=== PATIENT | female | born 1945 | race Caucasian/White ===

== ENCOUNTER 2016-11-21 12:00 | Outpatient (CLI) ==
[2015-11-18 10:18] VITALS: BMI 36.6
[2016-11-21 12:29] LABS: PROTHROMBIN TIME 28.7 SEC (9.3-11.0)
== END 2016-11-21 12:01 | disposition home or self-care (01) ==
LOC: LAB 12:00
PROVIDERS: ATTEND Internal Medicine
DX: Z51.81 Encounter for therapeutic drug level monitoring (principal); Z79.01 Long term (current) use of anticoagulants
CPT/HCPCS: 36415; 85610

== ENCOUNTER 2016-12-22 09:45 | Outpatient (CLI) ==
[2015-11-18 10:18] VITALS: BMI 36.6
[2016-12-22 10:06] LABS: PROTHROMBIN TIME 21.4 SEC (9.3-11.0)
== END 2016-12-22 09:46 | disposition home or self-care (01) ==
LOC: LAB 09:45
PROVIDERS: ATTEND Internal Medicine
DX: Z51.81 Encounter for therapeutic drug level monitoring (principal); Z79.01 Long term (current) use of anticoagulants
CPT/HCPCS: 36415; 85610

== ENCOUNTER 2017-01-19 09:04 | Outpatient (CLI) | payer OTHER ==
[2015-11-18 10:18] VITALS: BMI 36.6
[2017-01-19 09:35] LABS: PROTHROMBIN TIME 18.2 SEC (9.3-11.0)
== END 2017-01-19 09:05 | disposition home or self-care (01) ==
LOC: LAB 09:04
PROVIDERS: ATTEND Internal Medicine
DX: Z51.81 Encounter for therapeutic drug level monitoring (principal); Z79.01 Long term (current) use of anticoagulants
CPT/HCPCS: 36415; 85610

== ENCOUNTER 2017-01-26 08:50 | Outpatient (CLI) ==
[2015-11-18 10:18] VITALS: BMI 36.6
[2017-01-26 09:49] LABS: PROTHROMBIN TIME 20.6 SEC (9.3-11.0)
== END 2017-01-26 08:51 | disposition home or self-care (01) ==
LOC: LAB 08:50
PROVIDERS: ATTEND Internal Medicine
DX: Z51.81 Encounter for therapeutic drug level monitoring (principal); Z79.01 Long term (current) use of anticoagulants
CPT/HCPCS: 36415; 85610

== ENCOUNTER 2017-02-09 10:48 | Outpatient (CLI) ==
[2015-11-18 10:18] VITALS: BMI 36.6
[2017-02-09 11:31] LABS: PROTHROMBIN TIME 26.4 SEC (9.3-11.0)
== END 2017-02-09 10:49 | disposition home or self-care (01) ==
LOC: LAB 10:48
PROVIDERS: ATTEND Internal Medicine
DX: Z51.81 Encounter for therapeutic drug level monitoring (principal); Z79.01 Long term (current) use of anticoagulants
CPT/HCPCS: 36415; 85610

== ENCOUNTER 2017-02-23 08:16 | Outpatient (CLI) ==
[2015-11-18 10:18] VITALS: BMI 36.6
== END 2017-02-23 08:17 | disposition home or self-care (01) ==
LOC: LAB 08:16
PROVIDERS: ATTEND Internal Medicine
DX: Z51.81 Encounter for therapeutic drug level monitoring (principal); Z79.01 Long term (current) use of anticoagulants
CPT/HCPCS: 36415; 85610

== ENCOUNTER 2017-03-02 13:23 | Outpatient (CLI) ==
[2015-11-18 10:18] VITALS: BMI 36.6
[2017-03-02 14:12] LABS: PROTHROMBIN TIME 26.4 SEC (9.3-11.0)
== END 2017-03-02 13:24 | disposition home or self-care (01) ==
LOC: LAB 13:23
PROVIDERS: ATTEND Internal Medicine
DX: Z51.81 Encounter for therapeutic drug level monitoring (principal); Z79.01 Long term (current) use of anticoagulants
CPT/HCPCS: 36415; 85610

== ENCOUNTER 2017-03-16 15:18 | Outpatient (CLI) ==
[2015-11-18 10:18] VITALS: BMI 36.6
[2017-03-16 15:53] LABS: PROTHROMBIN TIME 22.3 SEC (9.3-11.0)
== END 2017-03-16 15:19 | disposition home or self-care (01) ==
LOC: LAB 15:18
PROVIDERS: ATTEND Internal Medicine
DX: Z51.81 Encounter for therapeutic drug level monitoring (principal); Z79.01 Long term (current) use of anticoagulants
CPT/HCPCS: 36415; 85610

== ENCOUNTER 2017-03-23 13:21 | Outpatient (CLI) ==
[2015-11-18 10:18] VITALS: BMI 36.6
[2017-03-23 14:02] LABS: PROTHROMBIN TIME 28.2 SEC (9.3-11.0)
== END 2017-03-23 13:22 | disposition home or self-care (01) ==
LOC: LAB 13:21
PROVIDERS: ATTEND Internal Medicine
DX: Z51.81 Encounter for therapeutic drug level monitoring (principal); Z79.01 Long term (current) use of anticoagulants
CPT/HCPCS: 36415; 85610

== ENCOUNTER 2017-03-30 10:11 | Outpatient (CLI) ==
[2015-11-18 10:18] VITALS: BMI 36.6
[2017-03-30 10:49] LABS: PROTHROMBIN TIME 27.3 SEC (9.3-11.0)
== END 2017-03-30 10:12 | disposition home or self-care (01) ==
LOC: LAB 10:11
PROVIDERS: ATTEND Internal Medicine
DX: Z51.81 Encounter for therapeutic drug level monitoring (principal); Z79.01 Long term (current) use of anticoagulants
CPT/HCPCS: 36415; 85610

== ENCOUNTER 2017-04-13 15:33 | Outpatient (CLI) | payer OTHER ==
[2015-11-18 10:18] VITALS: BMI 36.6
[2017-04-13 16:02] LABS: PROTHROMBIN TIME 28.1 SEC (9.3-11.0)
== END 2017-04-13 15:34 | disposition home or self-care (01) ==
LOC: LAB 15:33
PROVIDERS: ATTEND Internal Medicine
DX: Z51.81 Encounter for therapeutic drug level monitoring (principal); Z79.01 Long term (current) use of anticoagulants
CPT/HCPCS: 36415; 85610

== ENCOUNTER 2017-05-11 15:18 | Outpatient (CLI) ==
[2015-11-18 10:18] VITALS: BMI 36.6
[2017-05-11 16:39] LABS: PROTHROMBIN TIME 30.9 SEC (9.3-11.0)
== END 2017-05-11 15:19 | disposition home or self-care (01) ==
LOC: LAB 15:18
PROVIDERS: ATTEND Internal Medicine
DX: Z51.81 Encounter for therapeutic drug level monitoring (principal); Z79.01 Long term (current) use of anticoagulants
CPT/HCPCS: 36415; 85610

== ENCOUNTER 2017-05-25 15:21 | Outpatient (CLI) ==
[2015-11-18 10:18] VITALS: BMI 36.6
[2017-05-25 15:59] LABS: PROTHROMBIN TIME 32.9 SEC (9.3-11.0)
== END 2017-05-25 15:22 | disposition home or self-care (01) ==
LOC: LAB 15:21
PROVIDERS: ATTEND Internal Medicine
DX: Z51.81 Encounter for therapeutic drug level monitoring (principal); Z79.01 Long term (current) use of anticoagulants
CPT/HCPCS: 36415; 85610

== ENCOUNTER 2017-06-01 08:58 | Outpatient (CLI) ==
[2015-11-18 10:18] VITALS: BMI 36.6
[2017-06-01 09:28] LABS: PROTHROMBIN TIME 33.4 SEC (9.3-11.0)
== END 2017-06-01 08:59 | disposition home or self-care (01) ==
LOC: LAB 08:58
PROVIDERS: ATTEND Internal Medicine
DX: Z51.81 Encounter for therapeutic drug level monitoring (principal); Z79.01 Long term (current) use of anticoagulants
CPT/HCPCS: 36415; 85610

== ENCOUNTER 2017-06-02 08:37 | Outpatient (CLI) | payer OTHER ==
[2015-11-18 10:18] VITALS: BMI 36.6
[2017-06-02 09:11] LABS: PROTHROMBIN TIME 28.6 SEC (9.3-11.0)
== END 2017-06-02 08:38 | disposition home or self-care (01) ==
LOC: LAB 08:37
PROVIDERS: ATTEND Internal Medicine
DX: Z51.81 Encounter for therapeutic drug level monitoring (principal); Z79.01 Long term (current) use of anticoagulants
CPT/HCPCS: 36415; 85610

== ENCOUNTER 2017-06-06 08:21 | Outpatient (CLI) ==
[2015-11-18 10:18] VITALS: BMI 36.6
[2017-06-06 08:43] LABS: PROTHROMBIN TIME 25.2 SEC (9.3-11.0)
== END 2017-06-06 08:22 | disposition home or self-care (01) ==
LOC: LAB 08:21
PROVIDERS: ATTEND Internal Medicine
DX: Z51.81 Encounter for therapeutic drug level monitoring (principal); Z79.01 Long term (current) use of anticoagulants
CPT/HCPCS: 36415; 85610

== ENCOUNTER 2017-06-13 15:07 | Outpatient (CLI) ==
[2015-11-18 10:18] VITALS: BMI 36.6
[2017-06-13 15:40] LABS: PROTHROMBIN TIME 25.8 SEC (9.3-11.0)
== END 2017-06-13 15:08 | disposition home or self-care (01) ==
LOC: LAB 15:07
PROVIDERS: ATTEND Internal Medicine
DX: Z51.81 Encounter for therapeutic drug level monitoring (principal); Z79.01 Long term (current) use of anticoagulants
CPT/HCPCS: 36415; 85610

== ENCOUNTER 2017-06-20 15:11 | Outpatient (CLI) ==
[2015-11-18 10:18] VITALS: BMI 36.6
[2017-06-20 16:10] LABS: PROTHROMBIN TIME 26.8 SEC (9.3-11.0)
== END 2017-06-20 15:12 | disposition home or self-care (01) ==
LOC: LAB 15:11
PROVIDERS: ATTEND Internal Medicine
DX: Z51.81 Encounter for therapeutic drug level monitoring (principal); Z79.01 Long term (current) use of anticoagulants
CPT/HCPCS: 36415; 85610

== ENCOUNTER 2017-07-04 15:42 | Outpatient (CLI) ==
[2015-11-18 10:18] VITALS: BMI 36.6
[2017-07-04 16:05] LABS: PROTHROMBIN TIME 21.4 SEC (9.3-11.0)
== END 2017-07-04 15:43 | disposition home or self-care (01) ==
LOC: LAB 15:42
PROVIDERS: ATTEND Internal Medicine
DX: Z51.81 Encounter for therapeutic drug level monitoring (principal); Z79.01 Long term (current) use of anticoagulants
CPT/HCPCS: 36415; 85610

== ENCOUNTER 2017-07-18 15:11 | Outpatient (CLI) ==
[2015-11-18 10:18] VITALS: BMI 36.6
[2017-07-18 15:36] LABS: PROTHROMBIN TIME 21.8 SEC (9.3-11.0)
== END 2017-07-18 15:12 | disposition home or self-care (01) ==
LOC: LAB 15:11
PROVIDERS: ATTEND Internal Medicine
DX: Z51.81 Encounter for therapeutic drug level monitoring (principal); Z79.01 Long term (current) use of anticoagulants
CPT/HCPCS: 36415; 85610

== ENCOUNTER 2017-08-01 15:45 | Outpatient (CLI) ==
[2015-11-18 10:18] VITALS: BMI 36.6
[2017-08-01 16:19] LABS: PROTHROMBIN TIME 24.6 SEC (9.3-11.0)
== END 2017-08-01 15:46 | disposition home or self-care (01) ==
LOC: LAB 15:45
PROVIDERS: ATTEND Internal Medicine
DX: Z51.81 Encounter for therapeutic drug level monitoring (principal); Z79.01 Long term (current) use of anticoagulants
CPT/HCPCS: 36415; 85610

== ENCOUNTER 2017-08-31 09:56 | Outpatient (CLI) ==
[2015-11-18 10:18] VITALS: BMI 36.6
[2017-08-31 10:53] LABS: PROTHROMBIN TIME 20.7 SEC (9.3-11.0)
== END 2017-08-31 09:57 | disposition home or self-care (01) ==
LOC: LAB 09:56
PROVIDERS: ATTEND Internal Medicine
DX: Z51.81 Encounter for therapeutic drug level monitoring (principal); Z79.01 Long term (current) use of anticoagulants
CPT/HCPCS: 36415; 85610

== ENCOUNTER 2017-09-27 07:12 | Outpatient (CLI) ==
[2015-11-18 10:18] VITALS: BMI 36.6
[2017-09-27 07:58] LABS: PROTHROMBIN TIME 21.3 SEC (9.3-11.0)
== END 2017-09-27 07:13 | disposition home or self-care (01) ==
LOC: LAB 07:12
PROVIDERS: ATTEND Internal Medicine
DX: Z51.81 Encounter for therapeutic drug level monitoring (principal); Z79.01 Long term (current) use of anticoagulants
CPT/HCPCS: 36415; 85610

== ENCOUNTER 2017-10-24 12:17 | Outpatient (CLI) ==
[2015-11-18 10:18] VITALS: BMI 36.6
== END 2017-10-24 12:18 | disposition home or self-care (01) ==
LOC: LAB 12:17
PROVIDERS: ATTEND Internal Medicine
DX: Z51.81 Encounter for therapeutic drug level monitoring (principal); Z79.01 Long term (current) use of anticoagulants
CPT/HCPCS: 36415; 85610

== ENCOUNTER 2017-11-24 11:14 | Outpatient (CLI) ==
[2015-11-18 10:18] VITALS: BMI 36.6
== END 2017-11-24 11:15 | disposition home or self-care (01) ==
LOC: LAB 11:14
PROVIDERS: ATTEND Internal Medicine
DX: Z51.81 Encounter for therapeutic drug level monitoring (principal); Z79.01 Long term (current) use of anticoagulants
CPT/HCPCS: 36415; 85610

== ENCOUNTER 2017-12-21 09:00 | Outpatient (CLI) | payer OTHER ==
[2015-11-18 10:18] VITALS: BMI 36.6
== END 2017-12-21 09:01 | disposition home or self-care (01) ==
LOC: LAB 09:00
PROVIDERS: ATTEND Internal Medicine
DX: Z51.81 Encounter for therapeutic drug level monitoring (principal); Z79.01 Long term (current) use of anticoagulants
CPT/HCPCS: 36415; 85610

== ENCOUNTER 2018-01-18 08:50 | Outpatient (CLI) ==
[2015-11-18 10:18] VITALS: BMI 36.6
== END 2018-01-18 08:51 | disposition home or self-care (01) ==
LOC: LAB 08:50
PROVIDERS: ATTEND Internal Medicine
DX: Z51.81 Encounter for therapeutic drug level monitoring (principal); Z79.01 Long term (current) use of anticoagulants
CPT/HCPCS: 36415; 85610

== ENCOUNTER 2018-02-14 13:14 | Outpatient (CLI) ==
[2015-11-18 10:18] VITALS: BMI 36.6
== END 2018-02-14 13:15 | disposition home or self-care (01) ==
LOC: LAB 13:14
PROVIDERS: ATTEND Internal Medicine
DX: Z51.81 Encounter for therapeutic drug level monitoring (principal); Z79.01 Long term (current) use of anticoagulants
CPT/HCPCS: 36415; 85610

== ENCOUNTER 2018-03-14 13:24 | Outpatient (CLI) ==
[2015-11-18 10:18] VITALS: BMI 36.6
== END 2018-03-14 13:25 | disposition home or self-care (01) ==
LOC: LAB 13:24
PROVIDERS: ATTEND Internal Medicine
DX: Z51.81 Encounter for therapeutic drug level monitoring (principal); Z79.01 Long term (current) use of anticoagulants
CPT/HCPCS: 36415; 85610

== ENCOUNTER 2018-03-17 09:48 | Outpatient (CLI) ==
[2015-11-18 10:18] VITALS: BMI 36.6
== END 2018-03-17 09:49 | disposition home or self-care (01) ==
LOC: LAB 09:48
PROVIDERS: ATTEND Internal Medicine
DX: Z51.81 Encounter for therapeutic drug level monitoring (principal); Z79.01 Long term (current) use of anticoagulants
CPT/HCPCS: 36415; 85610

== ENCOUNTER 2018-03-23 08:16 | Outpatient (CLI) | payer OTHER ==
[2015-11-18 10:18] VITALS: BMI 36.6
== END 2018-03-23 08:17 | disposition home or self-care (01) ==
LOC: LAB 08:16
PROVIDERS: ATTEND Internal Medicine
DX: Z51.81 Encounter for therapeutic drug level monitoring (principal); Z79.01 Long term (current) use of anticoagulants
CPT/HCPCS: 36415; 85610

== ENCOUNTER 2018-03-30 07:30 | Outpatient (CLI) | payer OTHER ==
[2015-11-18 10:18] VITALS: BMI 36.6
== END 2018-03-30 07:31 | disposition home or self-care (01) ==
LOC: LAB 07:30
PROVIDERS: ATTEND Internal Medicine
DX: Z51.81 Encounter for therapeutic drug level monitoring (principal); Z79.01 Long term (current) use of anticoagulants
CPT/HCPCS: 36415; 85610

== ENCOUNTER 2018-04-06 08:28 | Outpatient (CLI) ==
[2015-11-18 10:18] VITALS: BMI 36.6
== END 2018-04-06 08:29 | disposition home or self-care (01) ==
LOC: LAB 08:28
PROVIDERS: ATTEND Internal Medicine
DX: Z51.81 Encounter for therapeutic drug level monitoring (principal); Z79.01 Long term (current) use of anticoagulants
CPT/HCPCS: 36415; 85610

== ENCOUNTER 2018-04-13 08:45 | Outpatient (CLI) | payer OTHER ==
[2015-11-18 10:18] VITALS: BMI 36.6
== END 2018-04-13 08:46 | disposition home or self-care (01) ==
LOC: LAB 08:45
PROVIDERS: ATTEND Internal Medicine
DX: Z51.81 Encounter for therapeutic drug level monitoring (principal); Z79.01 Long term (current) use of anticoagulants
CPT/HCPCS: 36415; 85610

== ENCOUNTER 2018-04-20 08:21 | Outpatient (CLI) ==
[2015-11-18 10:18] VITALS: BMI 36.6
== END 2018-04-20 08:22 | disposition home or self-care (01) ==
LOC: LAB 08:21
PROVIDERS: ATTEND Internal Medicine
DX: Z51.81 Encounter for therapeutic drug level monitoring (principal); Z79.01 Long term (current) use of anticoagulants
CPT/HCPCS: 36415; 85610

== ENCOUNTER 2018-05-04 08:46 | Outpatient (CLI) ==
[2015-11-18 10:18] VITALS: BMI 36.6
== END 2018-05-04 08:47 | disposition home or self-care (01) ==
LOC: LAB 08:46
PROVIDERS: ATTEND Internal Medicine
DX: Z51.81 Encounter for therapeutic drug level monitoring (principal); Z79.01 Long term (current) use of anticoagulants
CPT/HCPCS: 36415; 85610

== ENCOUNTER 2018-05-18 09:22 | Outpatient (CLI) | payer OTHER ==
[2015-11-18 10:18] VITALS: BMI 36.6
== END 2018-05-18 09:23 | disposition home or self-care (01) ==
LOC: LAB 09:22
PROVIDERS: ATTEND Internal Medicine
DX: Z51.81 Encounter for therapeutic drug level monitoring (principal); Z79.01 Long term (current) use of anticoagulants
CPT/HCPCS: 36415; 85610

== ENCOUNTER 2018-05-22 08:12 | Outpatient (CLI) ==
[2015-11-18 10:18] VITALS: BMI 36.6
== END 2018-05-22 08:13 | disposition home or self-care (01) ==
LOC: LAB 08:12
PROVIDERS: ATTEND Internal Medicine
DX: Z51.81 Encounter for therapeutic drug level monitoring (principal); Z79.01 Long term (current) use of anticoagulants
CPT/HCPCS: 36415; 85610

== ENCOUNTER 2018-05-25 10:02 | Outpatient (CLI) | payer OTHER ==
[2015-11-18 10:18] VITALS: BMI 36.6
== END 2018-05-25 10:03 | disposition home or self-care (01) ==
LOC: LAB 10:02
PROVIDERS: ATTEND Internal Medicine
DX: Z51.81 Encounter for therapeutic drug level monitoring (principal); Z79.01 Long term (current) use of anticoagulants
CPT/HCPCS: 36415; 85610

== ENCOUNTER 2018-06-01 10:50 | Outpatient (CLI) ==
[2015-11-18 10:18] VITALS: BMI 36.6
== END 2018-06-01 10:51 | disposition home or self-care (01) ==
LOC: LAB 10:50
PROVIDERS: ATTEND Internal Medicine
DX: Z51.81 Encounter for therapeutic drug level monitoring (principal); Z79.01 Long term (current) use of anticoagulants
CPT/HCPCS: 36415; 85610

== ENCOUNTER 2018-06-15 09:25 | Outpatient (CLI) ==
[2015-11-18 10:18] VITALS: BMI 36.6
== END 2018-06-15 09:26 ==
LOC: LAB 09:25
PROVIDERS: ATTEND Internal Medicine
DX: Z51.81 Encounter for therapeutic drug level monitoring (principal); Z79.01 Long term (current) use of anticoagulants
CPT/HCPCS: 36415; 85610

== ENCOUNTER 2018-06-29 09:39 | Outpatient (CLI) ==
[2015-11-18 10:18] VITALS: BMI 36.6
== END 2018-06-29 09:40 | disposition home or self-care (01) ==
LOC: LAB 09:39
PROVIDERS: ATTEND Internal Medicine
DX: Z51.81 Encounter for therapeutic drug level monitoring (principal); Z79.01 Long term (current) use of anticoagulants
CPT/HCPCS: 36415; 85610

== ENCOUNTER 2018-07-06 08:55 | Outpatient (CLI) ==
[2015-11-18 10:18] VITALS: BMI 36.6
== END 2018-07-06 08:56 | disposition home or self-care (01) ==
LOC: LAB 08:55
PROVIDERS: ATTEND Internal Medicine
DX: Z51.81 Encounter for therapeutic drug level monitoring (principal); Z79.01 Long term (current) use of anticoagulants
CPT/HCPCS: 36415; 85610

== ENCOUNTER 2018-07-27 07:52 | Outpatient (CLI) ==
[2015-11-18 10:18] VITALS: BMI 36.6
== END 2018-07-27 07:53 | disposition home or self-care (01) ==
LOC: LAB 07:52
PROVIDERS: ATTEND Internal Medicine
DX: Z51.81 Encounter for therapeutic drug level monitoring (principal); Z79.01 Long term (current) use of anticoagulants
CPT/HCPCS: 36415; 85610

== ENCOUNTER 2018-08-10 11:44 | Outpatient (CLI) ==
[2015-11-18 10:18] VITALS: BMI 36.6
== END 2018-08-10 11:45 | disposition home or self-care (01) ==
LOC: LAB 11:44
PROVIDERS: ATTEND Internal Medicine
DX: Z51.81 Encounter for therapeutic drug level monitoring (principal); Z79.01 Long term (current) use of anticoagulants
CPT/HCPCS: 36415; 85610

== ENCOUNTER 2018-08-24 08:52 | Outpatient (CLI) ==
[2015-11-18 10:18] VITALS: BMI 36.6
== END 2018-08-24 08:53 | disposition home or self-care (01) ==
LOC: LAB 08:52
PROVIDERS: ATTEND Internal Medicine
DX: Z51.81 Encounter for therapeutic drug level monitoring (principal); Z79.01 Long term (current) use of anticoagulants
CPT/HCPCS: 36415; 85610

== ENCOUNTER 2018-09-07 10:52 | Outpatient (CLI) ==
[2015-11-18 10:18] VITALS: BMI 36.6
== END 2018-09-07 10:53 | disposition home or self-care (01) ==
LOC: LAB 10:52
PROVIDERS: ATTEND Internal Medicine
DX: Z51.81 Encounter for therapeutic drug level monitoring (principal); Z79.01 Long term (current) use of anticoagulants
CPT/HCPCS: 36415; 85610

== ENCOUNTER 2018-09-14 11:04 | Outpatient (CLI) ==
[2015-11-18 10:18] VITALS: BMI 36.6
== END 2018-09-14 11:05 | disposition home or self-care (01) ==
LOC: LAB 11:04
PROVIDERS: ATTEND Internal Medicine
DX: Z51.81 Encounter for therapeutic drug level monitoring (principal); Z79.01 Long term (current) use of anticoagulants
CPT/HCPCS: 36415; 85610

== ENCOUNTER 2018-11-08 08:23 | Outpatient (CLI) ==
[2015-11-18 10:18] VITALS: BMI 36.6
== END 2018-11-08 08:24 | disposition home or self-care (01) ==
LOC: LAB 08:23
PROVIDERS: ATTEND Internal Medicine
DX: Z51.81 Encounter for therapeutic drug level monitoring (principal); Z79.01 Long term (current) use of anticoagulants
CPT/HCPCS: 36415; 85610

== ENCOUNTER 2018-11-22 08:49 | Outpatient (CLI) ==
[2015-11-18 10:18] VITALS: BMI 36.6
== END 2018-11-22 08:50 | disposition home or self-care (01) ==
LOC: LAB 08:49
PROVIDERS: ATTEND Internal Medicine
DX: Z51.81 Encounter for therapeutic drug level monitoring (principal); Z79.01 Long term (current) use of anticoagulants
CPT/HCPCS: 36415; 85610

== ENCOUNTER 2018-12-07 08:32 | Outpatient (CLI) | payer OTHER ==
[2015-11-18 10:18] VITALS: BMI 36.6
== END 2018-12-07 08:33 | disposition home or self-care (01) ==
LOC: LAB 08:32
PROVIDERS: ATTEND Internal Medicine
DX: Z51.81 Encounter for therapeutic drug level monitoring (principal); Z79.01 Long term (current) use of anticoagulants
CPT/HCPCS: 36415; 85610

== ENCOUNTER 2018-12-28 10:01 | Outpatient (CLI) | payer OTHER ==
[2015-11-18 10:18] VITALS: BMI 36.6
== END 2018-12-28 10:02 | disposition home or self-care (01) ==
LOC: LAB 10:01
PROVIDERS: ATTEND Internal Medicine
DX: Z51.81 Encounter for therapeutic drug level monitoring (principal); Z79.01 Long term (current) use of anticoagulants
CPT/HCPCS: 36415; 85610

== ENCOUNTER 2019-01-18 09:05 | Outpatient (CLI) ==
[2015-11-18 10:18] VITALS: BMI 36.6
== END 2019-01-18 09:06 | disposition home or self-care (01) ==
LOC: LAB 09:05
PROVIDERS: ATTEND Internal Medicine
DX: Z51.81 Encounter for therapeutic drug level monitoring (principal); Z79.01 Long term (current) use of anticoagulants
CPT/HCPCS: 36415; 85610

== ENCOUNTER 2019-02-08 08:07 | Outpatient (CLI) ==
[2015-11-18 10:18] VITALS: BMI 36.6
== END 2019-02-08 08:08 | disposition home or self-care (01) ==
LOC: LAB 08:07
PROVIDERS: ATTEND Internal Medicine
DX: Z51.81 Encounter for therapeutic drug level monitoring (principal); Z79.01 Long term (current) use of anticoagulants
CPT/HCPCS: 36415; 85610

== ENCOUNTER 2019-03-01 09:22 | Outpatient (CLI) ==
[2015-11-18 10:18] VITALS: BMI 36.6
== END 2019-03-01 09:23 | disposition home or self-care (01) ==
LOC: LAB 09:22
PROVIDERS: ATTEND Internal Medicine
DX: Z51.81 Encounter for therapeutic drug level monitoring (principal); Z79.01 Long term (current) use of anticoagulants
CPT/HCPCS: 36415; 85610

== ENCOUNTER 2019-03-22 07:45 | Outpatient (CLI) ==
[2015-11-18 10:18] VITALS: BMI 36.6
== END 2019-03-22 07:46 | disposition home or self-care (01) ==
LOC: LAB 07:45
PROVIDERS: ATTEND Internal Medicine
DX: Z51.81 Encounter for therapeutic drug level monitoring (principal); Z79.01 Long term (current) use of anticoagulants
CPT/HCPCS: 36415; 85610

== ENCOUNTER 2019-04-19 09:33 | Outpatient (CLI) ==
[2015-11-18 10:18] VITALS: BMI 36.6
== END 2019-04-19 09:34 | disposition home or self-care (01) ==
LOC: LAB 09:33
PROVIDERS: ATTEND Internal Medicine
DX: Z51.81 Encounter for therapeutic drug level monitoring (principal); Z79.01 Long term (current) use of anticoagulants
CPT/HCPCS: 36415; 85610

== ENCOUNTER 2019-07-12 10:13 | Outpatient (CLI) | payer OTHER ==
[2015-11-18 10:18] VITALS: BMI 36.6
== END 2019-07-12 10:14 | disposition home or self-care (01) ==
LOC: LAB 10:13
PROVIDERS: ATTEND Internal Medicine
DX: Z51.81 Encounter for therapeutic drug level monitoring (principal); Z79.01 Long term (current) use of anticoagulants
CPT/HCPCS: 36415; 85610